=== PATIENT | female | born 1940 | race Two or more races ===

== ENCOUNTER 2021-06-06 10:28 | Emergency (ER) | payer MEDICARE, OTHER ==
[~2021-06-06] VITALS: Ht 152.4 cm; Wt 59.0 kg
[2021-06-06] MEDS ORDERED: KETOROLAC TROMETH 60MG/2ML VIAL IM ONE (14:15)
[2021-06-06] MEDS ORDERED: MORPHINE SULFATE INJECTION 2 MG/ML SYRG IV ONE (14:30)
[2021-06-06] MEDS ORDERED: ONDANSETRON HCL 4 MG/2 ML VIAL IV ONE (14:30)
[2021-06-06] MEDS ORDERED: SODIUM CHLORIDE 0.9% 500 ML IV ONE (14:30)
[2021-06-06 15:59] LABS: Basophils # (auto) 0.1 10 ^3/uL (0-0.2); Basophils % (auto) 0.8 % (0.0-2.0); Eosinophils # (auto) 0.1 10 ^3/uL (0-0.8); Eosinophils % (auto) 0.8 % (0.0-7.0); Hematocrit 43.7 % (36.0-46.0); Hemoglobin 14.9 g/dL (12.2-16.2); Lymphocytes # (auto) 1.8 10 ^3/uL (0.4-5.4); Lymphocytes % (auto) 22.2 % (10.0-50.0); Mean Corpuscular Hemoglobin 28.7 pg (28.0-32.0); Mean Corpuscular Hgb Conc. 34.1 g/dL (32.0-36.0); Mean Corpuscular Volume 84.2 fL (80.0-100.0); Monocytes # (auto) 0.5 10 ^3/uL (0-1.3); Monocytes % (auto) 6.3 % (0.0-12.0); Neutrophils # (auto) 5.8 10 ^3/uL (1.6-8.6); Neutrophils % (auto) 69.9 % (37.0-80.0); Nucleated Red Blood Cells % 0.2 %; Red Blood Cells 5.19 10^6/uL (4.0-5.20); Red Cell Distribution Width 14.1 % (11.8-14.3); White Blood Cell 8.3 10^3/uL (4.4-10.8)
[2021-06-06 16:10] LABS: BUN/Creatinine Ratio 17.2; Calcium 9.5 mg/dL (8.5-10.1)
[2021-06-06 16:13] LABS: Bilirubin, Total 0.5 mg/dL (0.2-1.0); Total Protein 8.1 g/dL (6.4-8.2)
[2021-06-06 16:28] LABS: INR 1.06 (0.9-1.15)
[2021-06-06 16:33] LABS: Urine Bacteria FEW /hpf (None Seen); Urine Blood 1+ /uL (Negative); Urine Specific Gravity 1.006 (1.001-1.035); Urine WBC 2 /hpf (0 - 5)
[2021-06-06] MEDS ORDERED: SODIUM CHLORIDE 0.9% 1,000 ML IV ONE (22:45)
[2021-06-06] MEDS ORDERED: ACE3T PO (23:20)
[2021-06-06] MEDS ORDERED: DOCU-94 PO (23:20)
[2021-06-06 23:22] VITALS: BP 110/65
== END 2021-06-06 23:44 | disposition home or self-care (01) ==
LOC: ER 10:28
DX: S33.5XXA Sprain of ligaments of lumbar spine, initial encounter (principal); E78.5 Hyperlipidemia, unspecified; I10 Essential (primary) hypertension; M79.18 Myalgia, other site; Z90.710 Acquired absence of both cervix and uterus; W06.XXXA Fall from bed, initial encounter; Y93.89 Activity, other specified; Y92.89 Other specified places as the place of occurrence of the external cause; Y99.8 Other external cause status
CPT/HCPCS: 36415; 71045; 72131; 72192; 80053; 81001; 85025; 85610; 96361; 96374; 96375; 99285; J2270; J2405; J7040

== ENCOUNTER 2021-06-08 11:42 | Emergency (ER) | payer MEDICARE, OTHER ==
[~2021-06-08] VITALS: Ht 152.4 cm; Wt 62.1 kg
[~2021-06-08 11:42] MED LIST: ACE3T PO; DOCU-94 PO
[2021-06-08 11:47] VITALS: BP 148/68
[2021-06-08 14:35] LABS: Urine Bacteria FEW /hpf (None Seen); Urine Blood 1+ /uL (Negative); Urine Specific Gravity 1.014 (1.001-1.035); Urine WBC 3 /hpf (0 - 5)
[2021-06-08 14:49] LABS: Basophils # (auto) 0.2 10 ^3/uL (0-0.2); Basophils % (auto) 1.3 % (0.0-2.0); Eosinophils # (auto) 0 10 ^3/uL (0-0.8); Eosinophils % (auto) 0.3 % (0.0-7.0); Hematocrit 39.8 % (36.0-46.0); Hemoglobin 13.6 g/dL (12.2-16.2); Lymphocytes # (auto) 2.6 10 ^3/uL (0.4-5.4); Lymphocytes % (auto) 18.7 % (10.0-50.0); Mean Corpuscular Hemoglobin 28.7 pg (28.0-32.0); Mean Corpuscular Hgb Conc. 34.2 g/dL (32.0-36.0); Mean Corpuscular Volume 83.8 fL (80.0-100.0); Monocytes % (auto) 7.4 % (0.0-12.0); Neutrophils # (auto) 9.9 10 ^3/uL (1.6-8.6); Neutrophils % (auto) 72.3 % (37.0-80.0); Nucleated Red Blood Cells % 0.2 %; Red Blood Cells 4.75 10^6/uL (4.0-5.20); Red Cell Distribution Width 14.3 % (11.8-14.3); White Blood Cell 13.7 10^3/uL (4.4-10.8)
[2021-06-08 14:56] LABS: Albumin 3.4 g/dL (3.4-5.0); Calcium 8.5 mg/dL (8.5-10.1); Potassium 4.4 mmol/L (3.5-5.1)
[2021-06-08 14:59] LABS: Bilirubin, Total 0.5 mg/dL (0.2-1.0); Total Protein 7.2 g/dL (6.4-8.2)
== END 2021-06-08 17:54 | disposition left against medical advice (07) ==
LOC: EDUNIT# 11:42 → ER 11:42
DX: M54.50 Low back pain, unspecified (principal); K59.00 Constipation, unspecified; Z53.21 Procedure and treatment not carried out due to patient leaving prior to being seen by health care provider
CPT/HCPCS: 36415; 74176; 80053; 81001; 85025